=== PATIENT | female | born 1990 | race Caucasian/White ===

== ENCOUNTER 2016-09-02 08:39 | Outpatient (CLI) | payer OTHER | END 2016-09-02 08:40 | disposition home or self-care (01) | DX: D44.3 Neoplasm of uncertain behavior of pituitary gland (principal) ==

== ENCOUNTER 2017-01-19 11:56 | Outpatient (CLI) | payer OTHER | END 2017-01-19 11:57 | disposition home or self-care (01) | LOC: LAB 11:56 | PROVIDERS: ATTEND Nurse Practitioner Obstetrics & Gynecology | DX: R53.81 Other malaise (principal) | CPT/HCPCS: 36415; 84144 ==

== ENCOUNTER 2017-01-26 07:41 | Outpatient (CLI) | payer OTHER ==
[2017-01-26 09:30] LABS: THYROID STIMULATING HORMONE 1.41 uIU/mL (0.34-5.60)
[2017-01-26 09:38] LABS: FOLLICLE STIMULATING HORMONE 6.82 mIU/mL
[2017-01-26 09:39] LABS: LUTEINIZING HORMONE 3.25 mIU/mL
== END 2017-01-26 07:42 | disposition home or self-care (01) ==
LOC: LAB 07:41
PROVIDERS: ATTEND Nurse Practitioner Obstetrics & Gynecology
DX: R53.81 Other malaise (principal)
CPT/HCPCS: 36415; 82670; 83001; 83002; 84439; 84443

== ENCOUNTER 2017-03-04 07:21 | Outpatient (CLI) | payer OTHER | END 2017-03-04 07:22 | disposition home or self-care (01) | LOC: LAB 07:21 | PROVIDERS: ATTEND Internal Medicine Endocrinology, Diabetes & Metabolism | DX: E22.1 Hyperprolactinemia (principal) | CPT/HCPCS: 36415; 84146 ==

== ENCOUNTER 2017-06-16 08:00 | Outpatient (CLI) | payer OTHER | END 2017-06-16 23:59 | disposition home or self-care (01) | LOC: LAB.R 08:00 | PROVIDERS: ATTEND Registered Nurse | DX: O09.01 Supervision of pregnancy with history of infertility, first trimester (principal) | CPT/HCPCS: 87491; 87591 ==

== ENCOUNTER 2017-06-16 16:36 | Outpatient (CLI) | payer OTHER ==
[2017-06-16 16:57] LABS: BASOPHILS % (AUTO) 0.4 %; EOSINOPHILS # (AUTO) 0.1 10^3/uL (0.0-0.7); EOSINOPHILS % (AUTO) 1.3 %; HCT - HEMATOCRIT 38.7 % (37.0-47.0); LYMPHOCYTES # (AUTO) 2.1 10^3/uL (1.5-3.5); LYMPHOCYTES % (AUTO) 21.4 %; MEAN CORPUSCULAR HEMOGLOBIN 29.9 pg (27.0-31.0); MEAN CORPUSCULAR HGB CONC 33.6 g/dL (32.0-36.0); MEAN CORPUSCULAR VOLUME 88.9 fL (81.0-99.0); MEAN PLATELET VOLUME 8.6 fL (7.9-10.8); MONOCYTES # (AUTO) 0.8 10^3/uL (0.0-1.0); MONOCYTES % (AUTO) 8.2 %; NEUTROPHILS # (AUTO) 6.8 10^3/uL (1.5-6.6); NEUTROPHILS % (AUTO) 68.7 %; RED BLOOD COUNT 4.36 10^6/uL (4.20-5.40); RED CELL DISTRIBUTION WIDTH 12.4 % (12.0-15.0); UNCORRECTED WHITE BLOOD COUNT 9.9 x10^3/uL; WHITE BLOOD COUNT 9.9 x10^3/uL (4.8-10.8)
[2017-06-16 18:04] LABS: PROLACTIN 50.13 ng/mL
[2017-06-17 09:52] LABS: TEST RESULT REPORT
== END 2017-06-16 16:37 | disposition home or self-care (01) ==
LOC: LAB 16:36
PROVIDERS: ATTEND Registered Nurse
DX: O09.01 Supervision of pregnancy with history of infertility, first trimester (principal)
CPT/HCPCS: 36415; 81599; 84144; 84146; 84702; 85025; 86762; 86850; 86900; 86901; 87340; 87389

== ENCOUNTER 2017-09-28 07:37 | Outpatient (CLI) | payer OTHER ==
--- NOTE | 2017-09-30 15:40 | Ultrasound Report ---
OB ULTRASOUND: 09/28/2017 CLINICAL INDICATION: anatomy. TECHNIQUE: Real-time scanning was performed with paper sales representative static images obtained. LAST MENSTRUAL PERIOD: 05/11/2017 Clinical Age: 20 weeks 0 days US Age: 20 weeks 2 days EFW Hadlock: 364 g EFW% Hadlock: 77% Heart Rate: 159 bpm EDC: 02/15/2018 US EDC: 02/13/2018 BPD Hadlock: 19 weeks 4 days; Mean mm 44.8 HC Hadlock: 20 weeks 1 day; Mean mm 176.4 AC Hadlock: 20 weeks 6 days; Mean mm 156.7 FL Hadlock: 20 weeks 4 days; Mean mm 33.6 Presentation: --- Placental Location: anterior Cervical Length: 3.9 cm Amniotic Fluid: 3.6 cm FINDINGS: There is a single viable intrauterine gestation, in variable position. heart rate is 159 BPM. The placenta is anterior, without evidence of previa. The umbilical cord insertion into the placenta is eccentric. Amniotic fluid volume is subjectively normal, with a deepest pocket of 3.6 cm. By size, the fetus measures 20 weeks 2 days (20 weeks 0 days by LMP). The following anatomic structures were visualized and appear normal: The intracranial contents, including the ventricles and posterior fossa; the lips and orbits; the spine; the heart, including 4 chamber view and outflow tracts, and diaphragm; the abdominal contents, including the stomach, the bilateral kidneys, and urinary bladder, as well as a normal 3 vessel cord insertion; 4 limbs. No free fluid or adnexal lesion is appreciated. IMPRESSION: SINGLE VIABLE INTRAUTERINE GESTATION, WITH SIZE IN KEEPING WITH LMP DATING. NORMAL ANATOMIC SURVEY. [facility]
== END 2017-09-28 07:38 | disposition home or self-care (01) ==
LOC: DI 07:37
PROVIDERS: ATTEND Registered Nurse
DX: Z34.82 Encounter for supervision of other normal pregnancy, second trimester (principal)
CPT/HCPCS: 76811

== ENCOUNTER 2017-11-03 07:39 | Outpatient (CLI) | payer OTHER ==
[2017-11-03 09:06] LABS: HGB - HEMOGLOBIN 11.6 g/dL (12.0-16.0); MEAN CORPUSCULAR HEMOGLOBIN 30.5 pg (27.0-31.0); MEAN CORPUSCULAR HGB CONC 34.1 g/dL (32.0-36.0); MEAN CORPUSCULAR VOLUME 89.6 fL (81.0-99.0); MEAN PLATELET VOLUME 8.7 fL (7.9-10.8); RED BLOOD COUNT 3.81 10^6/uL (4.20-5.40); RED CELL DISTRIBUTION WIDTH 12.8 % (12.0-15.0); WHITE BLOOD COUNT 11.3 x10^3/uL (4.8-10.8)
== END 2017-11-03 07:40 | disposition home or self-care (01) ==
LOC: LAB 07:39
PROVIDERS: ATTEND Registered Nurse
DX: Z34.82 Encounter for supervision of other normal pregnancy, second trimester (principal)
CPT/HCPCS: 36415; 82950; 86850

== ENCOUNTER 2018-01-06 19:42 | Emergency (ER) | payer OTHER ==
--- NOTE | 2018-01-06 20:53 | ED Physician Documentation ---
History of Present Illness - Stated complaint Stated Complaint: RIGHT FOOT SWELL/34 WKS - Chief complaint Chief Complaint: General - History obtained from History obtained from: Patient - History of Present Illness Timing: Today (She is a G1 at 34 weeks who has had progressive pedal edema but became asymmetric and worse today with right being greater than left. There is no shortness of breath or trouble with chest pain or hemoptysis. She has no personal history of DVT or PE.) Review of Systems Constitutional: denies: Fever, Chills Cardiac: reports: Pedal edema. 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 : None HEENT: None Psych: None Musculoskeletal: None Derm: None - Past Surgical History Past Surgical History: No - Present Medications Home Medications: Ambulatory Orders Medication Instructions Recorded Confirmed Magnesium 01/06/18 Pnv95/Ferrous Fumarate/FA 1 each PO 01/06/18 [ Tablet] - Allergies Allergies/Adverse Reactions: Allergies Allergy/AdvReac Type Severity Reaction Status Date / Time No Known Drug Allergies Allergy Verified 01/06/18 20:36 - Social History Does the pt smoke?: No Smoking Status: Never smoker Does the pt drink ETOH?: No Does the pt have substance abuse?: No - Immunizations Immunizations are current?: Yes - POLST Patient has POLST: No PD ED PE NORMAL - Vitals Vital signs reviewed: Yes - General General: Alert and oriented X 3, No acute distress - Extremities Extremities: Other (She does have pedal edema which seems a little out of proportion for , right greater than left with negative Homans sign bilaterally.) - Neuro Neuro: Alert and oriented X 3, Normal speech Results - Vitals Vitals: Vital Signs - 24 hr 01/06/18 01/06/18 20:34 21:10 Temperature 36.2 C L Heart Rate 94 Respiratory 18 16 Rate Blood Pressure 113/81 H O2 Saturation 98 Oxygen O2 Source Room air - Labs Labs: Laboratory Tests 01/06/18 01/06/18 01/06/18 21:00 21:00 21:00 WBC 13.1 H RBC 3.89 L Hgb 12.0 Hct 35.3 L MCV 90.6 MCH 30.8 MCHC 33.9 RDW 12.8 Plt Count 230 MPV 9.8 Neut # (Auto) 9.5 H Lymph # (Auto) 2.3 [place] # (Auto) 1.2 H Eos # (Auto) 0.1 Baso # (Auto) 0.1 Absolute Nucleated RBC 0.00 Nucleated RBC % 0.0 PT 10.6 INR 0.9 APTT 25.8 Sodium 134 L Potassium 3.6 Chloride 104 Carbon Dioxide 23 Anion Gap 7.0 BUN 7 Creatinine 0.4 Estimated GFR (MDRD) 189 Glucose 102 H Calcium 9.1 Total Bilirubin < 0.2 L AST 23 ALT 20 Alkaline Phosphatase 174 H Total Protein 7.0 Albumin 2.9 L Globulin 4.1 Albumin/Globulin Ratio 0.7 L Lipase 28 PD MEDICAL DECISION MAKING - Sepsis Event Vital Signs: Vital Signs - 24 hr 01/06/18 01/06/18 20:34 21:10 Temperature 36.2 C L Heart Rate 94 Respiratory 18 16 Rate Blood Pressure 113/81 H O2 Saturation 98 Oxygen O2 Source Room air Departure - Departure Disposition: 01 Home, Self Care Clinical Impression: Pedal edema Qualifiers: Weeks of gestation: 34 weeks Qualified Code(s): Z3A.34 - 34 weeks gestation of Condition: Good Record reviewed to determine appropriate education?: Yes Instructions: ED Preg Established Normal Sxs, ED Edema Legs Bilateral
[2018-01-06 21:10] LABS: BASOPHILS # (AUTO) 0.1 10^3/uL (0.0-0.1); BASOPHILS % (AUTO) 0.5 %; EOSINOPHILS # (AUTO) 0.1 10^3/uL (0.0-0.7); EOSINOPHILS % (AUTO) 1.1 %; LYMPHOCYTES # (AUTO) 2.3 10^3/uL (1.5-3.5); LYMPHOCYTES % (AUTO) 17.4 %; MEAN CORPUSCULAR HEMOGLOBIN 30.8 pg (27.0-31.0); MEAN CORPUSCULAR HGB CONC 33.9 g/dL (32.0-36.0); MEAN CORPUSCULAR VOLUME 90.6 fL (81.0-99.0); MEAN PLATELET VOLUME 9.8 fL (7.9-10.8); MONOCYTES # (AUTO) 1.2 10^3/uL (0.0-1.0); NEUTROPHILS # (AUTO) 9.5 10^3/uL (1.5-6.6); PLT - PLATELET COUNT 230 10^3/uL (130-450); RED BLOOD COUNT 3.89 10^6/uL (4.20-5.40); RED CELL DISTRIBUTION WIDTH 12.8 % (12.0-15.0); WHITE BLOOD COUNT 13.1 x10^3/uL (4.8-10.8)
[2018-01-06 21:23] LABS: ALBUMIN 2.9 g/dL (3.2-5.5); ALBUMIN/GLOBULIN RATIO 0.7 (1.0-2.2); ALKALINE PHOSPHATASE 174 IU/L (42-121); ALT ALANINE AMINOTRANSFERASE 20 IU/L (10-60); AST ASPARTATE AMINOTRANSFERASE 23 IU/L (10-42); BILIRUBIN,TOTAL < 0.2 mg/dL (0.2-1.0); BUN - BLOOD UREA NITROGEN 7 mg/dL (6-20); CALCIUM 9.1 mg/dL (8.5-10.3); CARBON DIOXIDE - CO2 23 mmol/L (21-32); CHLORIDE 104 mmol/L (101-111); CREATININE 0.4 mg/dL (0.4-1.0); GFR - MDRD 189 (>89); GLUCOSE 102 mg/dL (70-100); LIPASE 28 U/L (22-51); SODIUM 134 mmol/L (135-145)
[2018-01-06 21:33] LABS: INR 0.9 (0.8-1.2); PT - PROTHROMBIN TIME 10.6 secs (9.9-12.6)
[2018-01-06 22:13] VITALS: BP 122/79
--- NOTE | 2018-01-06 22:34 | Ultrasound Report ---
Procedure Date: 01/06/2018 Accession Number: [id number] / [id number] Procedure: US - Duplex Ext Veins Bilateral CPT Code: FULL RESULT: EXAM: BILATERAL LOWER EXTREMITY VENOUS ULTRASOUND EXAM DATE: 01/06/2018 09:51 PM. CLINICAL HISTORY: Bilateral pedal edema. COMPARISON: None. TECHNIQUE: Real-time sonographic vascular imaging was performed by the creative/art director through the lower extremities utilizing both color-flow and Doppler spectral analysis. Multiple support representative static images were saved for review. FINDINGS: Right: Common Femoral Vein (CFV): Normal. CFV-GSV Junction: Normal. Profunda Femoral Vein (PFV): Normal. Femoral Vein (FV) Prox: Normal. Femoral Vein (FV) Mid: Normal. Femoral Vein (FV) Dist: Normal. Popliteal Vein: Normal. Posterior Tibial Veins: Normal. Peroneal Veins: Normal. Left: Common Femoral Vein (CFV): Normal. CFV-GSV Junction: Normal. Profunda Femoral Vein (PFV): Normal. Femoral Vein (FV) Prox: Normal. Femoral Vein (FV) Mid: Normal. Femoral Vein (FV) Dist: Normal. Popliteal Vein: Normal. Posterior Tibial Veins: Normal. Peroneal Veins: Normal. IMPRESSION: No evidence for deep venous thrombosis bilaterally. RADIA
== END 2018-01-06 22:13 | disposition home or self-care (01) ==
LOC: ED 19:42
DX: O12.03 Gestational edema, third trimester (principal); Z3A.34 34 weeks gestation of pregnancy
CPT/HCPCS: 36415; 80053; 83690; 85025; 85610; 85730; 93970; 99283

== ENCOUNTER 2018-01-18 08:00 | Outpatient (CLI) | payer OTHER | END 2018-01-18 08:01 | disposition home or self-care (01) | LOC: LAB.R 08:00 | PROVIDERS: ATTEND Nurse Practitioner Obstetrics & Gynecology | DX: Z36.85 Encounter for antenatal screening for Streptococcus B (principal) | CPT/HCPCS: 87081 ==

== ENCOUNTER 2018-01-31 16:48 | Outpatient (CLI) | payer OTHER ==
[2018-01-31 17:34] LABS: BASOPHILS % (AUTO) 0.3 %; EOSINOPHILS # (AUTO) 0.1 10^3/uL (0.0-0.7); EOSINOPHILS % (AUTO) 0.8 %; HGB - HEMOGLOBIN 11.7 g/dL (12.0-16.0); LYMPHOCYTES # (AUTO) 1.9 10^3/uL (1.5-3.5); LYMPHOCYTES % (AUTO) 14.6 %; MEAN CORPUSCULAR HEMOGLOBIN 31.2 pg (27.0-31.0); MEAN CORPUSCULAR HGB CONC 34.5 g/dL (32.0-36.0); MEAN CORPUSCULAR VOLUME 90.6 fL (81.0-99.0); MEAN PLATELET VOLUME 10.6 fL (7.9-10.8); MONOCYTES # (AUTO) 1.1 10^3/uL (0.0-1.0); MONOCYTES % (AUTO) 8.7 %; NEUTROPHILS # (AUTO) 9.9 10^3/uL (1.5-6.6); NEUTROPHILS % (AUTO) 75.6 %; PLT - PLATELET COUNT 199 10^3/uL (130-450); RED BLOOD COUNT 3.75 10^6/uL (4.20-5.40); WHITE BLOOD COUNT 13.1 x10^3/uL (4.8-10.8)
[2018-01-31 17:40] LABS: CREATININE 0.7 mg/dL (0.4-1.0)
[2018-01-31 17:43] LABS: CREATININE,URINE 42.8 mg/dL; PROTEIN/CREATININE RATIO,URINE 0.1 (<=0.2)
[2018-01-31 17:45] LABS: URIC ACID 5.7 mg/dL (2.6-7.2)
[2018-01-31 17:49] VITALS: BP 130/81
== END 2018-01-31 18:10 | disposition home or self-care (01) ==
LOC: WFO 16:48 → FBP 16:50 → WFO 18:10
PROVIDERS: ATTEND Nurse Practitioner Obstetrics & Gynecology
DX: O13.3 Gestational [pregnancy-induced] hypertension without significant proteinuria, third trimester (principal); Z3A.37 37 weeks gestation of pregnancy
CPT/HCPCS: 36415; 59025; 82565; 82570; 83615; 84156; 84450; 84550; 85025; 99213

== ENCOUNTER 2018-02-01 09:53 | Outpatient (CLI) | payer OTHER ==
[2018-02-01 10:17] VITALS: BP 123/71
== END 2018-02-01 10:30 | disposition home or self-care (01) ==
LOC: WFO 09:53 → FBP 09:54 → WFO 10:30
PROVIDERS: ATTEND Nurse Practitioner Obstetrics & Gynecology
DX: O13.3 Gestational [pregnancy-induced] hypertension without significant proteinuria, third trimester (principal); Z3A.38 38 weeks gestation of pregnancy
CPT/HCPCS: 59025

== ENCOUNTER 2018-02-03 09:21 | Outpatient (CLI) | payer OTHER ==
[2018-02-03 09:54] LABS: BASOPHILS % (AUTO) 0.3 %; EOSINOPHILS # (AUTO) 0.1 10^3/uL (0.0-0.7); EOSINOPHILS % (AUTO) 0.8 %; HGB - HEMOGLOBIN 11.3 g/dL (12.0-16.0); LYMPHOCYTES # (AUTO) 1.8 10^3/uL (1.5-3.5); LYMPHOCYTES % (AUTO) 14.8 %; MEAN CORPUSCULAR HEMOGLOBIN 30.6 pg (27.0-31.0); MEAN CORPUSCULAR HGB CONC 34.7 g/dL (32.0-36.0); MEAN CORPUSCULAR VOLUME 88.4 fL (81.0-99.0); MEAN PLATELET VOLUME 10.7 fL (7.9-10.8); NEUTROPHILS # (AUTO) 9.3 10^3/uL (1.5-6.6); NEUTROPHILS % (AUTO) 76.1 %; PLT - PLATELET COUNT 188 10^3/uL (130-450); RED BLOOD COUNT 3.68 10^6/uL (4.20-5.40); WHITE BLOOD COUNT 12.2 x10^3/uL (4.8-10.8)
[2018-02-03 10:19] LABS: CREATININE,URINE 26.4 mg/dL
[2018-02-03 10:20] LABS: TOTAL PROTEIN,URINE TIMED < 6 mg/dL
[2018-02-03 10:21] LABS: CREATININE 0.7 mg/dL (0.4-1.0)
[2018-02-03 10:29] VITALS: BP 128/84
[2018-02-03 10:58] LABS: URIC ACID 5.9 mg/dL (2.6-7.2)
== END 2018-02-03 11:30 | disposition home or self-care (01) ==
LOC: WFO 09:21 → FBP 09:23 → WFO 11:30
PROVIDERS: ATTEND Obstetrics & Gynecology
DX: O13.3 Gestational [pregnancy-induced] hypertension without significant proteinuria, third trimester (principal); Z3A.38 38 weeks gestation of pregnancy
CPT/HCPCS: 59025; 82565; 82570; 83615; 84156; 84450; 84550; 85025

== ENCOUNTER 2018-02-05 10:57 | Inpatient (IN) | payer OTHER ==
[2018-02-05] MEDS: SODIUM CHLORIDE FLUSH 0.9% 10 ML SYRINGE IVP SCH ×2 (11:30→20:51)
[2018-02-05] MEDS ORDERED: fentaNYL 100 MCG/2 ML VIAL IVP PRN (11:36)
[2018-02-05] MEDS ORDERED: ONDANSETRON 4 MG/2 ML VIAL IVP PRN ×2 (11:36→16:41)
[2018-02-05] MEDS ORDERED: SODIUM CHLORIDE FLUSH 0.9% 10 ML SYRINGE IVP PRN (11:36)
[2018-02-05] MEDS ORDERED: SODIUM CHLORIDE FLUSH 0.9% 10 ML SYRINGE ONE ×2 (11:48→12:03)
[2018-02-05 12:00] LABS: BASOPHILS % (AUTO) 0.3 %; EOSINOPHILS # (AUTO) 0.1 10^3/uL (0.0-0.7); EOSINOPHILS % (AUTO) 0.8 %; HGB - HEMOGLOBIN 11.2 g/dL (12.0-16.0); LYMPHOCYTES # (AUTO) 1.9 10^3/uL (1.5-3.5); LYMPHOCYTES % (AUTO) 17.2 %; MEAN CORPUSCULAR HEMOGLOBIN 31.1 pg (27.0-31.0); MEAN CORPUSCULAR HGB CONC 34.8 g/dL (32.0-36.0); MEAN CORPUSCULAR VOLUME 89.6 fL (81.0-99.0); MEAN PLATELET VOLUME 10.5 fL (7.9-10.8); MONOCYTES % (AUTO) 8.8 %; NEUTROPHILS % (AUTO) 72.9 %; PLT - PLATELET COUNT 163 10^3/uL (130-450); RED CELL DISTRIBUTION WIDTH 12.9 % (12.0-15.0); WHITE BLOOD COUNT 10.9 x10^3/uL (4.8-10.8)
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
[2018-02-05] MEDS ORDERED: miSOPROStol 100 MCG TABLET BC SCH (13:00)
[2018-02-05] MEDS: OXYTOCIN/SODIUM CHLORIDE 500 ML IV SCH (13:07)
[2018-02-05] MEDS: LACTATED RINGERS 1,000 ML IV SCH ×2 (14:53→19:10)
[2018-02-05] MEDS ORDERED: ROPIVACAINE 0.2% PF 20 ML AMPULE ONE (15:52)
[2018-02-05] MEDS ORDERED: fent/BUPIV 2 MCG/0.125% 250 ML EP ONE (15:52)
--- NOTE | 2018-02-05 15:52 | PROVIDER PROGRESS NOTE ---
Labor Progress Note - Uterine Monitoring Uterine Monitoring Mode: positive: External toco Contraction Frequency (min/apart): 2-3 Contraction Intensity: positive: Strong Uterine Resting Tone: positive: Soft - Monitoring Monitor Mode: positive: External ultrasound Heart Rate Baseline: 140 Heart Rate Variability: positive: Moderate (6-25 bmp) Accelerations: positive: Present, 15x15 Decelerations: positive: None Strip Review: positive: Category I - Vaginal Exam Dilation (in cm): 5 Effacement (%): 90 Station: 1 Cervical Position: Anterior - Labor Progress Note Labor Progress Note/Additional Text: S: Patient sitting in bed, breathing through contractions and requests epidural for pain management. Coping well with contractions but states she does not desire to be in discomfort any longer. She denies FRANK, visual disturbances, RUQ or epigastric pain. supportive at the bedside. O: BP 128/71, HR 74, afebrile. SVE 5/90/+1, vertex, anterior, soft. Contractions palpate moderate-strong every 1-3 minutes with soft resting tone. FHR baseline 140s, moderate variability, + accels, no decels. A: 27yo @ 38.4wks gestation by L=7wk U/S Gestational HTN FHT Category I GBS neg P: Continuous monitoring Pitocin titration per protocol Fatuma Herrera CRNA at bedside to place epidural Will repeat SVE when pt comfortable with epidural or sooner PRN. Reevaluate in 4 hours or sooner PRN. Pt and verbalize understanding and agree to above plan. They deny further questions or concerns at this time.
--- NOTE | 2018-02-05 16:36 | ANESTHESIA ---
Pre-Anesthesia VS, & Labs - Diagnosis desires labor analgesia, induced hypertension - Procedure Labor epidural Vital Signs: Temp Pulse Resp BP Pulse Ox 36.5 C 73 20 142/92 H 100 02/05/18 11:20 02/05/18 11:10 02/05/18 11:10 02/05/18 11:41 02/05/18 11:10 Height 5 ft 5 in Body Mass Index 28.9 - NPO Other (instructed to be clear liquids from now until delivery) Last Food Intake: cookie about 5 mins ago - Is Patient ?: Yes - Lab Results Lab results reviewed: Yes Fish Bones: 02/05/18 11:50 Home Medications and Allergies Home Medications: Ambulatory Orders Medication Instructions Recorded Confirmed Magnesium 01/06/18 Pnv95/Ferrous Fumarate/FA 1 each PO 01/06/18 [ Tablet] Allergies/Adverse Reactions: Allergies Allergy/AdvReac Type Severity Reaction Status Date / Time No Known Drug Allergies Allergy Verified 01/06/18 20:36 Anes History & Medical History - Anesthetic History Anesthesia Complications: reports: No previous complications Family history of Anesthesia Complications: Denies Family history of Malignant Hyperthermia: Denies - Airway/Dental Dental: WNL Neck Mobility: Normal Mallampati classification: II Thyromental Distance: greater than 6 cm - Medical History Cardiovascular: reports: None, Hypertension ( induced) Pulmonary: reports: None Gastrointestinal: reports: None Urinary: reports: None Neuro: reports: None Musculoskeletal: reports: None Endocrine/Autoimmune: reports: None Blood Disorders: reports: None Skin: reports: None Smoking Status: Never smoker - Obstetrical History : 1 Parity: 0 Events: positive: None Complications: positive: induced HTN, Other Plan for Delivery: vaginal Exam General: Alert, Oriented x3 Respiratory: Lungs clear Cardiovascular: Regular rate Extremities: Other (2+ pitting edema to feet) Mental/Cognitive Status: Alert/Oriented X3 Other Exam Comments:: FHR 140's, normal tracings Plan Anesthesia Type: Epidural Consent for Operative Procedure(s) Verified and Reviewed: Yes Code Status: Attempt Resuscitation ASA classification: 2-Mild systemic disease Is this case an emergency?: No
[2018-02-05] MEDS ORDERED: fent/BUPIV 2 MCG/0.125% 250 ML EP PRN (16:41)
[2018-02-05] MEDS ORDERED: diphenhydrAMINE INJ 50 MG/ML VIAL IVP PRN (16:41)
[2018-02-05] MEDS ORDERED: NALBUPHINE 10 MG/ML AMP IVP PRN (16:41)
[2018-02-05] MEDS ORDERED: HYDROCORTISONE/PRAMOXINE 10 GM PR PRN (20:24)
[2018-02-05] MEDS ORDERED: WITCH HAZEL/GLYCERIN 1 EACH MED..PAD TOP PRN (20:24)
[2018-02-05] MEDS ORDERED: OXYTOCIN/SODIUM CHLORIDE 250 ML IV ONE (20:24)
[2018-02-05] MEDS ORDERED: LIDOCAINE 1% 50 ML MDV TD ONE (20:31)
--- NOTE | 2018-02-05 20:49 | DELIVERY NOTE ---
Delivery Note - Labor Labor: positive: Augmented by ARM, Augmented by oxytocin - Delivery Method Delivery Method: positive: Spontaneous vaginal delivery - Presentation Presentation: positive: Vertex, SHALONDA - left occiput anterior - Nuchal Cord Nuchal Cord: positive: None - Amniotic Fluid Description Amniotic Fluid Description: positive: Clear - Episiotomy Type Episiotomy Type: positive: None - Laceration Laceration: positive: 1st degree, Vaginal - Suture Suture Type: positive: Vicryl Suture Size: positive: 3-0 - [place]: positive: Placed in direct skin contact with mother, Stimulated, Warmed , [place] used sex: positive: Female - Cord Cord: positive: 3 vessels - Placenta Placenta: positive: Intact, Spontaneous - Estimated Blood Loss Estimated Blood Loss (in cc): 300 - Post Delivery Events Post Delivery Events: positive: No post delivery events - Delivery Comments (Free Text/Narrative) Delivery Comments (Free Text/Narrative): Labor: This 27yo @ 38.4wks gestation by L=7wk U/S presented @ 1100 on for NST and BP check. At that time her BP was elevated to 142/92 with previously diagnosed gestational HTN. Cervix was 4/90/0, midposition, and vertex. AROM occurred at approximately 1200 and was noted to be a moderate amount of clear fluid. FHR pattern demonstrated a baseline 140-150s in a Category I pattern. Epidural placed upon maternal request. Labor augmented with Pitocin for a max of 3. Patient progressed to c/c/+2 at 1744. : Normal of viable female infant. No nuchal cord. 's were 8 and 9 at 1 and 5 min respectively on 02/05/2018 at 1938. The was placed on maternal abdomen, stimulated, dried, and placed skin to skin. The umbilical cord was allowed to stop pulsating at which time it was doubly clamped at cut by FOB. Cord blood was obtained. Cord gases sent. Placenta delivered spontaneously and intact at 1944. 3VC. Pitocin administered via IV for hemostasis. EBL 300mL. Fourth Stage: Uterine fundus firm and there is no excessive bleeding. The perineum, vagina, and cervix were inspected and noted to have shallow 1st degree vaginal laceration at introitus. Repair completed using 3-[address]-1 needle in usual fashion under sterile conditions. Perineum intact. Vaginal examination following repair was done. Tissue well approximated. initiated. Family bonding well. Both mother and baby were left in stable condition.
[2018-02-05] MEDS: IBUPROFEN 800 MG TABLET PO SCH (20:50)
[2018-02-05] MEDS: ACETAMINOPHEN 325 MG TABLET PO PRN (20:51)
[2018-02-06] MEDS: SODIUM CHLORIDE FLUSH 0.9% 10 ML SYRINGE IVP SCH ×2 (01:27→18:44)
[2018-02-06] MEDS: ACETAMINOPHEN 325 MG TABLET PO PRN ×3 (04:16→16:31)
[2018-02-06] MEDS: IBUPROFEN 800 MG TABLET PO SCH ×3 (04:16→16:31)
--- NOTE | 2018-02-06 10:03 | PROVIDER PROGRESS NOTE ---
Subjective - Subjective Subjective: S: Bonding well with baby. with some difficulty keeping baby awake at the breast. 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 Pain well controlled with ibuprofen and Tylenol. supportive at the bedside. Mood is good. O: BP 122/67; HR 86; T 36.8; RR 16 Heart RRR w/o M/G/R, lungs CTAB, abdomen soft and nontender with fundus firm at U-2. Bilateral LE's 1+ edema -decreased since delivery. Perineum intact. Light lochia rubra. A: 27yo -->P1 s/p TSVD of viable female infant named Ej Espino Gestational HTN - essentially normotensive since delivery P: Continue routine care and medications. Specific attention spent on and support. Objective - Vital Signs/Intake & Output Vital Signs: Vital Signs x48h Temp Pulse Resp BP Pulse Ox 02/06/18 08:00 36.8 C 86 16 122/67 100 02/06/18 04:20 36.5 C 79 16 137/82 H 99 Intake & Output: Intake & Output 02/03/18 02/04/18 02/05/18 02/06/18 23:59 23:59 23:59 23:59 Intake Total 084.893 8691 Output Total 900 700 Balance -471.034 300 - Lab Results Fish Bones: 02/05/18 11:50 Other Labs: Lab Results x24hrs 02/05/18 02/05/18 02/05/18 Range/Units 11:50 11:50 11:50 WBC 10.9 H (4.8-10.8) x10^3/uL RBC 3.60 L (4.20-5.40) 10^6/uL Hgb 11.2 L (12.0-16.0) g/dL Hct 32.3 L (37.0-47.0) % MCV 89.6 (81.0-99.0) fL MCH 31.1 H (27.0-31.0) pg MCHC 34.8 (32.0-36.0) g/dL RDW 12.9 (12.0-15.0) % Plt Count 163 (130-450) 10^3/uL MPV 10.5 (7.9-10.8) fL Neut # (Auto) 8.0 H (1.5-6.6) 10^3/uL Lymph # (Auto) 1.9 (1.5-3.5) 10^3/uL [place] # (Auto) 1.0 (0.0-1.0) 10^3/uL Eos # (Auto) 0.1 (0.0-0.7) 10^3/uL Baso # (Auto) 0.0 (0.0-0.1) 10^3/uL Absolute Nucleated RBC 0.00 x10^3/uL Nucleated RBC % 0.0 /100WBC Uric Acid 6.0 (2.6-7.2) mg/dL AST 25 (10-42) IU/L Lactate Dehydrogenase 135 (91-225) IU/L
[2018-02-06] MEDS: OXYTOCIN/SODIUM CHLORIDE 500 ML IV SCH (11:43)
[2018-02-06] MEDS: LACTATED RINGERS 1,000 ML IV SCH (11:46)
[2018-02-07] MEDS: IBUPROFEN 800 MG TABLET PO SCH ×3 (01:04→12:43)
[2018-02-07] MEDS: ACETAMINOPHEN 325 MG TABLET PO PRN ×3 (01:05→12:44)
[2018-02-07 07:59] VITALS: BP 119/79
--- NOTE | 2018-02-07 11:15 | Discharge Plan ---
Discharge Plan Disposition: 01 Home, Self Care Condition: Good Diet: Regular Activity Restrictions: pelvic rest Shower Restrictions: No Driving Restrictions: No Weight Bearing: Full Weight Instruction Topics: Vaginal After, Breastfeed How To, Exercises Kegel No Smoking: If you smoke, Please STOP! Call for help. Follow-up with: Stephanie Maher CNM, ARNP [Primary Care Provider] -
--- NOTE | 2018-02-09 10:47 | DISCHARGE SUMMARY ---
"Discharge Summary Admit Date: 02/05/18 Discharge Date: 02/07/18 Discharging Provider: khoi Code Status: Attempt Resuscitation Condition at Discharge: Good Discharge Disposition: 01 Home, Self Care Discharge Facility Name: [facility] - DIAGNOSES Admission Diagnoses: gestational hypertension Discharge Diagnoses with Status of Each Condition: - HPI History of Present Illness: China Dos Santos is a 27 y/o [id number] who presented for IOL for gestational HTN. She received 1 dose of buccal misoprostol & shortly thereafter entered active labor. She progressed steadily to complete dilatation & delivered a viable female vaginally w/o complication or laceration. - CONSULTS | PROCEDURES Procedures: - HOSPITAL COURSE Hospital Course: , China is doing well. She is ambulating & voiding w/o difficulty. She is passing flatus & is tolerating a regular diet. She reports minimal discomfort & minimal lochia rubra. She is exclusively w/o difficulty. She is planning 12 weeks of leave from work & is not planning to contracept. her is involved & supportive. She is able to fully articulate pp warning s/sx, including pp depression s/sx, and pp aftercare instructions. She is ready to leave the hospital. - ALLERGIES Allergies/Adverse Reactions: Allergies Allergy/AdvReac Type Severity Reaction Status Date / Time No Known Drug Allergies Allergy Verified 01/06/18 20:36 - MEDICATIONS Home Medications: Ambulatory Orders Medication Instructions Recorded Confirmed Magnesium 01/06/18 Pnv95/Ferrous Fumarate/FA 1 each PO 01/06/18 [ Tablet] Acetaminophen [Tylenol] 650 mg PO Q6H PRN tablet 02/07/18 Ibuprofen [Motrin] 800 mg PO Q6H tablet 02/07/18 - PHYSICAL EXAM AT DISCHARGE General Appearance: positive: No acute distress, Alert Eyes Bilateral: positive: Normal inspection, PERRL, EOMI Respiratory: positive: Chest non-tender, No respiratory distress, Breath sounds nml Cardiovascular: positive: Regular rate & rhythm, No murmur Abdomen: positive: Non-tender, No distention, Other (FF u-2) Skin: positive: Color nml, No rash, Warm, Dry Extremities: positive: Non-tender, Full ROM, Nml appearance, Pedal edema. negative: Calf tenderness, David's sign/cords Neurologic/Psychiatric: positive: Oriented x3, CN's nml (2-12), Motor nml, Sensation nml, Mood/affect nml Physical Exam Other/Comments: breasts b/l s, nt; nipples b/l intact & everted; colostrum readily expressible. - LABS Result Diagrams: 02/05/18 11:50 - FOLLOW UP Follow Up: x2 days for BP check, x1 week for w/ Stephanie Maher CNM - TIME SPENT Time Spent in Discharge (Minutes): 20"
== END 2018-02-07 15:54 | disposition home or self-care (01) | DRG 775 ==
LOC: WFO 10:57 → FBP 10:59 → WFO 11:35 → UNDOADMOB 11:36 → FBP 11:36 → OBSVTOIN 11:38 → FBP 11:38
PROVIDERS: ADMIT Nurse Practitioner Obstetrics & Gynecology; ATTEND Registered Nurse
PROC: 10E0XZZ Delivery of Products of Conception, External Approach (ICD-10-PCS; principal; 2018-02-05)
PROC: 0UQG0ZZ Repair Vagina, Open Approach (ICD-10-PCS; 2018-02-05)
PROC: 10907ZC Drainage of Amniotic Fluid, Therapeutic from Products of Conception, Via Natural or Artificial Opening (ICD-10-PCS; 2018-02-05)
DX: O13.4 Gestational [pregnancy-induced] hypertension without significant proteinuria, complicating childbirth (principal); Z3A.38 38 weeks gestation of pregnancy; Z37.0 Single live birth; O71.4 Obstetric high vaginal laceration alone
CPT/HCPCS: 36415; 59025; 83615; 84450; 84550; 85025

== ENCOUNTER 2020-10-03 08:53 | Outpatient (CLI) | payer OTHER | END 2020-10-03 08:54 | disposition home or self-care (01) | LOC: LAB 08:53 | PROVIDERS: ATTEND Nurse Practitioner Obstetrics & Gynecology | DX: E22.1 Hyperprolactinemia (principal) | CPT/HCPCS: 36415; 84146 ==

== ENCOUNTER 2020-12-12 08:59 | Outpatient (CLI) | payer OTHER | END 2020-12-12 09:00 | disposition home or self-care (01) | LOC: LAB 08:59 | PROVIDERS: ATTEND Internal Medicine Endocrinology, Diabetes & Metabolism | DX: D35.2 Benign neoplasm of pituitary gland (principal) | CPT/HCPCS: 36415; 84146 ==

== ENCOUNTER 2021-01-19 09:38 | Outpatient (CLI) | payer OTHER | END 2021-01-19 09:39 | disposition home or self-care (01) | LOC: LAB 09:38 | PROVIDERS: ATTEND Internal Medicine Endocrinology, Diabetes & Metabolism | DX: D35.2 Benign neoplasm of pituitary gland (principal) | CPT/HCPCS: 36415; 84146 ==

== ENCOUNTER 2021-07-02 09:25 | Outpatient (CLI) | payer OTHER | END 2021-07-02 09:26 | disposition home or self-care (01) | LOC: LAB 09:25 | PROVIDERS: ATTEND Internal Medicine Endocrinology, Diabetes & Metabolism | DX: E22.1 Hyperprolactinemia (principal) | CPT/HCPCS: 36415; 84146 ==

== ENCOUNTER 2021-08-12 09:18 | Outpatient (CLI) | payer OTHER | END 2021-08-12 09:19 | disposition home or self-care (01) | LOC: LAB 09:18 | PROVIDERS: ATTEND Internal Medicine Endocrinology, Diabetes & Metabolism | DX: E22.1 Hyperprolactinemia (principal) | CPT/HCPCS: 36415; 84146 ==

== ENCOUNTER 2022-03-15 07:56 | Outpatient (CLI) | payer OTHER ==
--- NOTE | 2022-03-15 15:36 | Ultrasound Report ---
PROCEDURE: OB Detailed Eval INDICATIONS: SUPERVISION OF OUTSIDE/PRIOR DATING DATA: Last menstrual period (LMP): 10/27/2021. LMP-based estimated date of delivery (ALEENA): 08/03/2022. First dating scan (date and location): 01/06/2022. Estimated date of delivery (ALEENA) from first dating scan: 08/03/2022. The below data below was generated using the clinical ALEENA of 08/03/2022 TECHNIQUE: Real-time scanning was performed of the fetus, with image documentation and biometric measurements. Endovaginal scanning: Not performed. COMPARISON: None. FINDINGS: General: A single living intrauterine gestation is present. Presentation: Breech Placenta: Placental position is posterior, without previa. Amniotic fluid index: 14.1 cm, normal for gestational age. Single deepest vertical fluid pocket: 5.2 cm. heart rate: 143 beats per minute. Maternal cervical canal: 4.0 cm long; normal length is 2.5 cm or more. An anterior uterine fibroid measures 1.2 x 0.8 x 1.0 cm. biometrics: Biparietal diameter: 4.5 cm, 19 weeks 3 days Head circumference: 17.2 cm, 19 weeks 6 days Abdominal circumference: 15.3 cm, 20 weeks 3 days Femur length: 3.3 cm, 20 weeks 2 days Estimated gestational age from initial scan: 19 weeks 6 days. Composite gestational age from present scan: 20 weeks 0 days Estimated weight and percentile: 344 g, 70th percentile Measurement variability in biometric dating: +/- 10 days from 12-20 weeks gestation, +/- 2 weeks from 20-30 weeks gestation, +/- 3 weeks at 30 weeks gestation or later. Anatomic survey: Neuro: Ventricles are normal at less than 10 mm. Cisterna magna is normal at 3-11 mm. Cerebellum i s normal in size and morphology. Nuchal skin fold: Normal at less than 6 mm between 14 and 20 weeks gestational age. Face: Nose and lips, facial profile are normal. Spine: No evidence for spina bifida. Heart: 4-chambered heart is present, with normal ventricular outflow tracts. Diaphragm: Diaphragm is intact. Stomach: Left-sided stomach is present. Kidneys: No hydronephrosis. Normal is less than 5 mm in 2nd trimester, less than 7 mm in 3rd trimester. Cord: 3 vessel cord has orthotopic insertion. Bladder: Normal in size. Extremities: All 4 extremities are visualized. IMPRESSION: 1.Single live intrauterine with appropriate size for dates. 2. anatomic survey is within normal limits. Reviewed by: Rony Herrera MD on 03/15/2022 2:35 PM AKDT Approved by: Rony Herrera MD on 03/15/2022 2:35 PM AKDT Station ID: [id number]
== END 2022-03-15 07:57 | disposition home or self-care (01) ==
LOC: DI 07:56
PROVIDERS: ATTEND Nurse Practitioner Obstetrics & Gynecology
DX: Z34.02 Encounter for supervision of normal first pregnancy, second trimester (principal); Z36.89 Encounter for other specified antenatal screening